=== PATIENT | female | born 1945 | race Caucasian/White ===

== ENCOUNTER 2022-12-23 14:53 | Inpatient (IN) | payer OTHER ==
[2022-12-23] VITALS (11 sets, daily range): BP systolic 94–142; BP diastolic 41–86; PULSE 70–88; RESP 12–15; TEMP 98.1–98.3
[~2022-12-23] VITALS: Ht 147.3 cm; Wt 56.6 kg
[2022-12-23] MEDS ORDERED: HEPARIN SODIUM,PORCINE 5,000 UNITS/ML VIAL IVP ONE (15:00)
[2022-12-23] MEDS ORDERED: TICAGRELOR 90 MG TABLET PO ONE (15:00)
[2022-12-23] MEDS ORDERED: SODIUM CHLORIDE 0.9% 1,000 ML IV ONE ×2 (15:00→16:45)
[2022-12-23 15:18] LABS: COVID AG,FIA SOURCE NASAL SWAB
[2022-12-23 15:20] LABS: BASOPHILS % (AUTO) 0.3 % (0.0-2.0); EOSINOPHILS % (AUTO) 0.1 % (1.0-6.0); HEMATOCRIT 34.5 % (36-46); HEMOGLOBIN 11.1 g/dL (12.0-16.0); LYMPHOCYTES # (AUTO) 0.8 K/uL (1.0-4.8); LYMPHOCYTES % (AUTO) 17.9 % (22.0-44.0); MEAN CORPUSCULAR HEMOGLOBIN 30.2 pg (26.0-34.0); MEAN CORPUSCULAR HGB CONC 32.2 G/dL (31.0-37.0); MEAN CORPUSCULAR VOLUME 94 fL (80-100); MONOCYTES # (AUTO) 0.2 K/uL (0.1-1.0); MONOCYTES % (AUTO) 5.1 % (2.0-9.0); NEUTROPHILS # (AUTO) 3.3 K/uL (1.8-7.7); NEUTROPHILS % (AUTO) 76.6 % (40.0-70.0); PLATELET COUNT (AUTO) 175 K/uL (150-450); RED BLOOD CELL COUNT(AUTO) 3.68 MIL/uL (4.00-5.20); RED CELL DISTRIBUTION WIDTH 15.2 % (11.5-14.5); WHITE BLOOD COUNT (AUTO) 4.3 K/uL (4.5-11.0)
[2022-12-23] MEDS ORDERED: FentaNYL CITRATE PF 100 MCG/2 ML VIAL ONE (15:28)
[2022-12-23] MEDS ORDERED: SODIUM BICARBONATE 50 MEQ/50 ML VIAL ONE (15:28)
[2022-12-23] MEDS ORDERED: HEPARIN SODIUM 1000 UNITS/NS 1,000 ML ONE (15:28)
[2022-12-23] MEDS ORDERED: LIDOCAINE/PF 1% 30 ML VIAL ONE (15:28)
[2022-12-23] MEDS ORDERED: MIDAZOLAM HCL 2 MG/2 ML VIAL ONE (15:28)
[2022-12-23] MEDS ORDERED: IOHEXOL 300 MG/ML 100 ML VIAL ONE ×2 (15:28→16:02)
[2022-12-23 15:29] LABS: CALCIUM, TOTAL 8.5 mg/dL (8.8-10.5); CREATININE 1.97 mg/dL (0.60-1.30)
[2022-12-23 15:37] LABS: SARS-COV2 (COVID) ANTIGEN,FIA Negative (Negative)
[2022-12-23 15:42] LABS: TROPONIN I-HIGH SENSITIVITY 10283 ng/L (<51)
[2022-12-23] MEDS ORDERED: IOHEXOL 300 MG/ML 100 ML VIAL ICOR ONE (15:45)
[2022-12-23] MEDS ORDERED: HEPARIN SODIUM 1000 UNITS/NS 1,000 ML IARTER ONE (15:45)
[2022-12-23] MEDS ORDERED: FentaNYL CITRATE PF 100 MCG/2 ML VIAL IVP ONE (15:45)
[2022-12-23] MEDS ORDERED: MIDAZOLAM HCL 2 MG/2 ML VIAL IVP ONE ×2 (15:45→16:00)
[2022-12-23] MEDS ORDERED: LIDOCAINE 1% 30 ML/SOD BICARB 8.4% 4 ML SQ ONE ×2 (15:45→16:00)
[2022-12-23] MEDS ORDERED: NITROGLYCERIN 50 MG/D5% WATER 250 ML ONE (15:49)
[2022-12-23] MEDS ORDERED: VERAPAMIL HCL 2.5 MG/ML 2 ML VIAL ONE (15:50)
[2022-12-23 15:53] LABS: ALBUMIN 2.8 g/dL (3.4-5.0); BILIRUBIN,TOTAL 0.5 mg/dL (0.1-1.0); TOTAL PROTEIN, SERUM 6.6 g/dL (6.4-8.2)
[2022-12-23] MEDS ORDERED: IOHEXOL 300 MG/ML 100 ML VIAL IARTER ONE (16:00)
[2022-12-23] MEDS ORDERED: HEPARIN SODIUM,PORCINE 1,000 UNITS/ML 10 ML VIAL IARTER ONE (16:00)
[2022-12-23] MEDS ORDERED: HEPARIN SODIUM 2,000 UNITS in HEPARIN SODIUM 1000 UNITS/NS 1,000 ML IARTER ONE (16:00)
[2022-12-23] MEDS ORDERED: ACETAMINOPHEN 325 MG TABLET PO PRN (16:45)
[2022-12-23] MEDS: METOPROLOL SUCCINATE 25 MG ER TABLET PO SCH ×2 (18:00→20:37)
[2022-12-23] MEDS ORDERED: LIDO1ADH23 TP (19:08)
[2022-12-23] MEDS ORDERED: HYDR-4072 PO (19:08)
[2022-12-23] MEDS: MORPHINE SULFATE 2 MG/ML SYRINGE IVP PRN (19:48)
[2022-12-23] MEDS: ATORVASTATIN CALCIUM 40 MG TABLET PO SCH (20:37)
[2022-12-23] MEDS: DOCUSATE SODIUM 100 MG CAPSULE PO SCH (20:37)
[2022-12-23] MEDS ORDERED: TICAGRELOR 90 MG TABLET PO SCH (21:00)
[2022-12-23] MEDS: TICAGRELOR 90 MG TABLET PO SCH (21:25)
[2022-12-23] MEDS ORDERED: MORPHINE SULFATE 2 MG/ML SYRINGE IVP ONE (21:45)
[2022-12-23] MEDS ORDERED: MORPHINE SULFATE 2 MG/ML SYRINGE IM ONE (21:45)
[2022-12-23 23:05] LABS: TROPONIN I-HIGH SENSITIVITY 10964 ng/L (<51)
[2022-12-23] MEDS ORDERED: FUROSEMIDE 20 MG/2 ML VIAL IVP ONE (23:15)
[2022-12-24] VITALS (18 sets, daily range): BP systolic 96–142; BP diastolic 56–98; PULSE 56–73; RESP 17–31; TEMP 97.9–98.8
[2022-12-24] MEDS: MORPHINE SULFATE 2 MG/ML SYRINGE IVP PRN ×5 (00:12→18:01)
[2022-12-24] MEDS ORDERED: TICAGRELOR 90 MG TABLET PO SCH (06:00)
[2022-12-24 06:42] LABS: BASOPHILS % (AUTO) 0.5 % (0.0-2.0); EOSINOPHILS % (AUTO) 0.6 % (1.0-6.0); HEMATOCRIT 26.4 % (36-46); HEMOGLOBIN 8.6 g/dL (12.0-16.0); LYMPHOCYTES # (AUTO) 2.4 K/uL (1.0-4.8); LYMPHOCYTES % (AUTO) 48.4 % (22.0-44.0); MEAN CORPUSCULAR HEMOGLOBIN 30.9 pg (26.0-34.0); MEAN CORPUSCULAR HGB CONC 32.5 G/dL (31.0-37.0); MEAN CORPUSCULAR VOLUME 95 fL (80-100); MONOCYTES # (AUTO) 0.3 K/uL (0.1-1.0); MONOCYTES % (AUTO) 5.6 % (2.0-9.0); NEUTROPHILS # (AUTO) 2.2 K/uL (1.8-7.7); NEUTROPHILS % (AUTO) 44.9 % (40.0-70.0); PLATELET COUNT (AUTO) 155 K/uL (150-450); RED BLOOD CELL COUNT(AUTO) 2.77 MIL/uL (4.00-5.20); RED CELL DISTRIBUTION WIDTH 15.3 % (11.5-14.5); WHITE BLOOD COUNT (AUTO) 4.9 K/uL (4.5-11.0)
[2022-12-24 06:45] LABS: ALBUMIN 2.4 g/dL (3.4-5.0); BILIRUBIN,TOTAL 0.3 mg/dL (0.1-1.0); CALCIUM, TOTAL 8.1 mg/dL (8.8-10.5); CREATININE 1.77 mg/dL (0.60-1.30); POTASSIUM 4.4 mmol/L (3.5-5.1); TOTAL PROTEIN, SERUM 5.5 g/dL (6.4-8.2)
[2022-12-24] MEDS: METOPROLOL SUCCINATE 25 MG ER TABLET PO SCH (08:00)
[2022-12-24] MEDS: DOCUSATE SODIUM 100 MG CAPSULE PO SCH ×2 (09:10→20:47)
[2022-12-24] MEDS: TICAGRELOR 90 MG TABLET PO SCH ×2 (09:11→20:46)
[2022-12-24] MEDS: ASPIRIN 81 MG CHEWABLE TABLET PO SCH (09:11)
[2022-12-24] MEDS: FAMOTIDINE 20 MG TABLET PO SCH (09:11)
[2022-12-24 14:16] LABS: HEMATOCRIT 24.8 % (36-46)
[2022-12-24] MEDS: ATORVASTATIN CALCIUM 40 MG TABLET PO SCH (20:47)
[2022-12-25] VITALS: BP 110/50; PULSE 75; RESP 18; TEMP 98.3
[2022-12-25 04:00] VITALS: BP 133/67; PULSE 73; RESP 19; TEMP 99.4
[2022-12-25 05:40] LABS: BASOPHILS % (AUTO) 0.3 % (0.0-2.0); EOSINOPHILS % (AUTO) 3.5 % (1.0-6.0); HEMATOCRIT 22.8 % (36-46); HEMOGLOBIN 7.6 g/dL (12.0-16.0); LYMPHOCYTES # (AUTO) 2.1 K/uL (1.0-4.8); LYMPHOCYTES % (AUTO) 39.6 % (22.0-44.0); MEAN CORPUSCULAR HEMOGLOBIN 31.1 pg (26.0-34.0); MEAN CORPUSCULAR HGB CONC 33.2 G/dL (31.0-37.0); MEAN CORPUSCULAR VOLUME 94 fL (80-100); MONOCYTES # (AUTO) 0.3 K/uL (0.1-1.0); MONOCYTES % (AUTO) 6.1 % (2.0-9.0); NEUTROPHILS # (AUTO) 2.7 K/uL (1.8-7.7); NEUTROPHILS % (AUTO) 50.5 % (40.0-70.0); PLATELET COUNT (AUTO) 146 K/uL (150-450); RED BLOOD CELL COUNT(AUTO) 2.43 MIL/uL (4.00-5.20); RED CELL DISTRIBUTION WIDTH 15.4 % (11.5-14.5); WHITE BLOOD COUNT (AUTO) 5.3 K/uL (4.5-11.0)
[2022-12-25 05:48] LABS: ALBUMIN 2.4 g/dL (3.4-5.0); BILIRUBIN,TOTAL 0.3 mg/dL (0.1-1.0); CALCIUM, TOTAL 8.5 mg/dL (8.8-10.5); CREATININE 1.99 mg/dL (0.60-1.30); POTASSIUM 4.6 mmol/L (3.5-5.1); TOTAL PROTEIN, SERUM 5.5 g/dL (6.4-8.2)
[2022-12-25 08:00] VITALS: BP 139/71; PULSE 87; RESP 25; TEMP 99
[2022-12-25] MEDS: METOPROLOL SUCCINATE 25 MG ER TABLET PO SCH (08:10)
[2022-12-25] MEDS: FAMOTIDINE 20 MG TABLET PO SCH (08:10)
[2022-12-25] MEDS: TICAGRELOR 90 MG TABLET PO SCH ×2 (08:10→20:50)
[2022-12-25] MEDS: ASPIRIN 81 MG CHEWABLE TABLET PO SCH (08:10)
[2022-12-25] MEDS: DOCUSATE SODIUM 100 MG CAPSULE PO SCH ×2 (08:11→20:50)
[2022-12-25] MEDS: MORPHINE SULFATE 2 MG/ML SYRINGE IVP PRN ×3 (08:11→22:37)
[2022-12-25] MEDS ORDERED: MAGNESIUM HYDROXIDE SUSPENSION 30 ML UDCUP PO PRN (08:45)
[2022-12-25] MEDS ORDERED: BISACODYL 10 MG RECTAL RECTAL SUPPOSITORY PR PRN (08:45)
[2022-12-25] MEDS: PANTOPRAZOLE SODIUM 40 MG DR TABLET PO SCH ×2 (10:36→20:51)
[2022-12-25] MEDS ORDERED: FUROSEMIDE 20 MG/2 ML VIAL ONE (11:02)
[2022-12-25] MEDS ORDERED: PREG75CA76 PO (11:10)
[2022-12-25] MEDS ORDERED: LANS-78 PO (11:10)
[2022-12-25] MEDS ORDERED: LORA10TA7 PO (11:10)
[2022-12-25] MEDS ORDERED: FURO20TA4 PO (11:10)
[2022-12-25] MEDS ORDERED: LIDO1ADH63 TD (11:10)
[2022-12-25] MEDS ORDERED: GABA-529 PO (11:10)
[2022-12-25] MEDS ORDERED: DOCU100C33 PO (11:10)
[2022-12-25] MEDS ORDERED: FLUT16H NASAL (11:10)
[2022-12-25] MEDS ORDERED: ALLO100T PO (11:10)
[2022-12-25] MEDS ORDERED: BUPR-317 PO (11:10)
[2022-12-25] MEDS ORDERED: ASPI-1444 PO (11:10)
[2022-12-25] MEDS ORDERED: HYDR100T28 PO (11:10)
[2022-12-25] MEDS ORDERED: FUROSEMIDE 20 MG/2 ML VIAL IVP ONE ×2 (11:15→12:00)
[2022-12-25 12:00] VITALS: BP 110/68; PULSE 82; RESP 23; TEMP 98.9
[2022-12-25] MEDS: ONDANSETRON HCL 4 MG/2 ML VIAL IVP PRN (14:05)
[2022-12-25 16:00] VITALS: BP 118/64; PULSE 80; RESP 21; TEMP 98
[2022-12-25] MEDS: FERROUS SULFATE 325 MG EC TABLET PO SCH (17:42)
[2022-12-25 19:00] LABS: BASOPHILS % (AUTO) 0.3 % (0.0-2.0); EOSINOPHILS % (AUTO) 0.4 % (1.0-6.0); HEMATOCRIT 23.3 % (36-46); HEMOGLOBIN 7.6 g/dL (12.0-16.0); LYMPHOCYTES # (AUTO) 1.6 K/uL (1.0-4.8); LYMPHOCYTES % (AUTO) 35.5 % (22.0-44.0); MEAN CORPUSCULAR HEMOGLOBIN 30.7 pg (26.0-34.0); MEAN CORPUSCULAR HGB CONC 32.6 G/dL (31.0-37.0); MEAN CORPUSCULAR VOLUME 94 fL (80-100); MONOCYTES # (AUTO) 0.3 K/uL (0.1-1.0); MONOCYTES % (AUTO) 5.6 % (2.0-9.0); NEUTROPHILS # (AUTO) 2.6 K/uL (1.8-7.7); NEUTROPHILS % (AUTO) 58.2 % (40.0-70.0); PLATELET COUNT (AUTO) 148 K/uL (150-450); RED BLOOD CELL COUNT(AUTO) 2.48 MIL/uL (4.00-5.20); RED CELL DISTRIBUTION WIDTH 15.1 % (11.5-14.5); WHITE BLOOD COUNT (AUTO) 4.5 K/uL (4.5-11.0)
[2022-12-25 20:00] VITALS: BP 128/72; PULSE 81; RESP 27; TEMP 99.9
[2022-12-25] MEDS: ATORVASTATIN CALCIUM 40 MG TABLET PO SCH (20:51)
[2022-12-26] VITALS: BP 126/66; PULSE 66; RESP 22; TEMP 99
[2022-12-26] MEDS ORDERED: SODIUM CHLORIDE 0.9% 250 ML IV ONE (02:59)
[2022-12-26 04:00] VITALS: BP 128/64; PULSE 66; RESP 20; TEMP 98.7
[2022-12-26 05:36] LABS: BASOPHILS % (AUTO) 0.3 % (0.0-2.0); EOSINOPHILS % (AUTO) 1.5 % (1.0-6.0); HEMATOCRIT 22.7 % (36-46); HEMOGLOBIN 7.5 g/dL (12.0-16.0); LYMPHOCYTES # (AUTO) 2.9 K/uL (1.0-4.8); LYMPHOCYTES % (AUTO) 52.4 % (22.0-44.0); MEAN CORPUSCULAR HEMOGLOBIN 31.1 pg (26.0-34.0); MEAN CORPUSCULAR HGB CONC 33.1 G/dL (31.0-37.0); MEAN CORPUSCULAR VOLUME 94 fL (80-100); MONOCYTES # (AUTO) 0.4 K/uL (0.1-1.0); MONOCYTES % (AUTO) 6.5 % (2.0-9.0); NEUTROPHILS # (AUTO) 2.1 K/uL (1.8-7.7); NEUTROPHILS % (AUTO) 39.3 % (40.0-70.0); PLATELET COUNT (AUTO) 145 K/uL (150-450); RED BLOOD CELL COUNT(AUTO) 2.41 MIL/uL (4.00-5.20); RED CELL DISTRIBUTION WIDTH 15.4 % (11.5-14.5); WHITE BLOOD COUNT (AUTO) 5.5 K/uL (4.5-11.0)
[2022-12-26 05:49] LABS: ALBUMIN 2.3 g/dL (3.4-5.0); BILIRUBIN,TOTAL 0.5 mg/dL (0.1-1.0); CALCIUM, TOTAL 8.4 mg/dL (8.8-10.5); CREATININE 2.1 mg/dL (0.60-1.30); POTASSIUM 4.4 mmol/L (3.5-5.1); TOTAL PROTEIN, SERUM 5.6 g/dL (6.4-8.2)
[2022-12-26 08:00] VITALS: BP 134/61; PULSE 72; RESP 15; TEMP 99.2
[2022-12-26] MEDS: TICAGRELOR 90 MG TABLET PO SCH ×2 (08:04→21:49)
[2022-12-26] MEDS: FERROUS SULFATE 325 MG EC TABLET PO SCH ×2 (08:05→17:04)
[2022-12-26] MEDS: FUROSEMIDE 40 MG TABLET PO SCH (08:05)
[2022-12-26] MEDS: ASPIRIN 81 MG CHEWABLE TABLET PO SCH (08:05)
[2022-12-26] MEDS: DOCUSATE SODIUM 100 MG CAPSULE PO SCH ×2 (08:05→20:29)
[2022-12-26] MEDS: PANTOPRAZOLE SODIUM 40 MG DR TABLET PO SCH ×2 (08:05→20:30)
[2022-12-26] MEDS: METOPROLOL SUCCINATE 25 MG ER TABLET PO SCH (08:05)
[2022-12-26] MEDS: ONDANSETRON HCL 4 MG/2 ML VIAL IVP PRN ×2 (10:43→18:58)
[2022-12-26] MEDS: MORPHINE SULFATE 2 MG/ML SYRINGE IVP PRN ×3 (10:49→23:31)
[2022-12-26 12:00] VITALS: BP 125/65; PULSE 68; RESP 27; TEMP 99
[2022-12-26 19:41] VITALS: BP 123/64; PULSE 74; RESP 22; TEMP 98
[2022-12-26] MEDS: ATORVASTATIN CALCIUM 40 MG TABLET PO SCH (20:30)
[2022-12-26 22:38] VITALS: BP 105/53; PULSE 59; RESP 22; TEMP 98.3
[2022-12-27] VITALS: BP 135/71; PULSE 60; RESP 22; TEMP 97.2
[2022-12-27 04:00] VITALS: BP 134/66; PULSE 60; RESP 22; TEMP 96.6
[2022-12-27 06:58] LABS: BASOPHILS % (AUTO) 0.3 % (0.0-2.0); EOSINOPHILS % (AUTO) 5.1 % (1.0-6.0); HEMATOCRIT 21.2 % (36-46); HEMOGLOBIN 7.1 g/dL (12.0-16.0); LYMPHOCYTES # (AUTO) 2.4 K/uL (1.0-4.8); LYMPHOCYTES % (AUTO) 55.7 % (22.0-44.0); MEAN CORPUSCULAR HEMOGLOBIN 31.6 pg (26.0-34.0); MEAN CORPUSCULAR HGB CONC 33.6 G/dL (31.0-37.0); MEAN CORPUSCULAR VOLUME 94 fL (80-100); MONOCYTES # (AUTO) 0.2 K/uL (0.1-1.0); MONOCYTES % (AUTO) 5.1 % (2.0-9.0); NEUTROPHILS # (AUTO) 1.5 K/uL (1.8-7.7); NEUTROPHILS % (AUTO) 33.8 % (40.0-70.0); PLATELET COUNT (AUTO) 147 K/uL (150-450); RED BLOOD CELL COUNT(AUTO) 2.25 MIL/uL (4.00-5.20); RED CELL DISTRIBUTION WIDTH 15.8 % (11.5-14.5); WHITE BLOOD COUNT (AUTO) 4.4 K/uL (4.5-11.0)
[2022-12-27 07:09] LABS: CREATININE 2.22 mg/dL (0.60-1.30); POTASSIUM 3.7 mmol/L (3.5-5.1)
[2022-12-27 07:41] VITALS: BP 129/59; PULSE 60; RESP 16; TEMP 98.4
[2022-12-27] MEDS: FERROUS SULFATE 325 MG EC TABLET PO SCH ×2 (08:37→18:25)
[2022-12-27] MEDS: DOCUSATE SODIUM 100 MG CAPSULE PO SCH ×2 (08:38→20:17)
[2022-12-27] MEDS: METOPROLOL SUCCINATE 25 MG ER TABLET PO SCH (08:38)
[2022-12-27] MEDS: FUROSEMIDE 40 MG TABLET PO SCH (08:38)
[2022-12-27] MEDS: ASPIRIN 81 MG CHEWABLE TABLET PO SCH (08:38)
[2022-12-27] MEDS: PANTOPRAZOLE SODIUM 40 MG DR TABLET PO SCH ×2 (08:38→20:17)
[2022-12-27] MEDS: TICAGRELOR 90 MG TABLET PO SCH ×2 (08:38→20:17)
[2022-12-27] MEDS: MORPHINE SULFATE 2 MG/ML SYRINGE IVP PRN ×2 (08:49→18:59)
[2022-12-27 11:37] VITALS: BP 117/73; PULSE 59; RESP 16; TEMP 98.1
[2022-12-27] MEDS: ONDANSETRON HCL 4 MG/2 ML VIAL IVP PRN (11:42)
[2022-12-27 13:24] LABS: HEMATOCRIT 24.3 % (36-46); HEMOGLOBIN 7.9 g/dL (12.0-16.0)
[2022-12-27 16:23] LABS: COVID AG,FIA SOURCE NASAL SWAB
[2022-12-27 16:42] LABS: SARS-COV2 (COVID) ANTIGEN,FIA Negative (Negative)
[2022-12-27 20:09] VITALS: BP 132/70; PULSE 68; RESP 17; TEMP 98
[2022-12-27] MEDS: ATORVASTATIN CALCIUM 40 MG TABLET PO SCH (20:17)
[2022-12-28] MEDS ORDERED: MULTIVITAMINS WITH MINERALS, THERAPEUTIC TABLET PO SCH (09:00)
== END 2022-12-27 20:25 | DRG 321 ==
LOC: EMS 14:53 → ICUN 14:59 → ICU 16:45 → 5N 12-26 14:00 → 5S 12-26 23:49
PROVIDERS: ADMIT Internal Medicine; ATTEND Internal Medicine
PROC: 027035Z Dilation of Coronary Artery, One Artery with Two Drug-eluting Intraluminal Devices, Percutaneous Approach (ICD-10-PCS; principal; 2022-12-23)
PROC: 4A023N7 Measurement of Cardiac Sampling and Pressure, Left Heart, Percutaneous Approach (ICD-10-PCS; 2022-12-23)
PROC: B2151ZZ Fluoroscopy of Left Heart using Low Osmolar Contrast (ICD-10-PCS; 2022-12-23)
PROC: B2111ZZ Fluoroscopy of Multiple Coronary Arteries using Low Osmolar Contrast (ICD-10-PCS; 2022-12-23)
DX: I21.3 ST elevation (STEMI) myocardial infarction of unspecified site (principal); I50.23 Acute on chronic systolic (congestive) heart failure; N17.9 Acute kidney failure, unspecified; I13.0 Hypertensive heart and chronic kidney disease with heart failure and stage 1 through stage 4 chronic kidney disease, or unspecified chronic kidney disease; I97.630 Postprocedural hematoma of a circulatory system organ or structure following a cardiac catheterization; Z95.5 Presence of coronary angioplasty implant and graft; I95.9 Hypotension, unspecified; Z85.3 Personal history of malignant neoplasm of breast; Z92.3 Personal history of irradiation; D64.9 Anemia, unspecified; K59.00 Constipation, unspecified; I25.10 Atherosclerotic heart disease of native coronary artery without angina pectoris; Z20.822 Contact with and (suspected) exposure to COVID-19; N18.30 Chronic kidney disease, stage 3 unspecified; Y93.89 Activity, other specified; Y92.89 Other specified places as the place of occurrence of the external cause; Y99.8 Other external cause status; F32.A Depression, unspecified; Z86.73 Personal history of transient ischemic attack (TIA), and cerebral infarction without residual deficits
CPT/HCPCS: 71045; 80048; 80053; 82550; 83880; 84484; 85014; 85018; 85025; 87081; 92920; 92928; 93005; 93306; 97163; 97167; 97530; 97535; 99291; J1644; J1940; J2250; J2270; J2405; J3010; J3490; J7030; J7050; Q9967; 36415-L1; 36415-TC; Z7610